=== PATIENT | male | born 1990 | race Caucasian/White ===

== ENCOUNTER → 2021-05-31 10:45 | Outpatient (BNVA) | payer SELFPAY | PROVIDERS: Family Provider Family Medicine; Visit Provider Nurse Practitioner Family | DX: R19.8 Other specified symptoms and signs involving the digestive system and abdomen (principal); R19.7 Diarrhea, unspecified | CPT/HCPCS: 81000 ==

== ENCOUNTER → 2021-06-01 11:06 | Outpatient (BNVA) | payer SELFPAY | PROVIDERS: Family Provider Family Medicine; Visit Provider Nurse Practitioner Family | DX: R19.8 Other specified symptoms and signs involving the digestive system and abdomen (principal); R19.7 Diarrhea, unspecified | CPT/HCPCS: 87425; 87506 ==